=== PATIENT | male | born 1995 | race Two or more races ===

== ENCOUNTER 2018-11-20 23:06 | Emergency (ER) | payer MEDICAID ==
[~2018-11-20] VITALS: Ht 172.7 cm; Wt 72.6 kg
--- NOTE | 2018-11-20 23:30 | NUR ---
ED Nurse Note: RECIEVED PT FROM HOME ON [facility] AWAKE, ALERT AND ORIENTED X 4, PT HERE WITH C/O HAVING HERPES FLARE UP, TP STATES HE ALSO HAS DYSURIA AND PAIN ON HIS PENIS, SMALL HERPES LIKE LESION NOTED ON PENIS WITH REDNESS, PT STATES DYSURIA ALSO, PT DENEIS FEVERS, DIARRHEA, CP, SOB, OR ANY OTHER COMPLAINTS OR DISCOMFORTS. PT ASSISTED TO GOWNING AND URINE SAMPLE COLLECTED.
[2018-11-21] MEDS ORDERED: ACYCLOVIR800 MG ORAL (00:04)
[2018-11-21 00:20] VITALS: BP 129/77
--- NOTE | 2018-11-21 00:30 | NUR ---
ED Nurse Note: PT SEEN BY MD AND BEING D/C TO HOME, PT GIVEN F;U INFO, AFTER CARE INSTRUCTIONS AND RE-VERBALIZES PROPER MEDICATION ADMINISTRATION, PT WITH SPOUSE, PT DENEIS CP OR ANY OTHER DISCOMFORTS OR DISTRESS, PT ELAVING AMBULATORY WITH STEADY GAIT, ARMBAND REMOVED, NAD NOTED DURING D/C TO HOME.
[2018-11-21 00:37] VITALS: BP 129/77
--- NOTE | 2018-11-21 02:06 | Emergency Room Report ---
History of Present Illness General Chief Complaint: Male Urogenital Problems Source: Patient Present Illness Allergies: Coded Allergies: No Known Allergies (Unverified , 11/20/18) Patient History Reviewed Nursing Documentation: PMH: Agreed; PSxH: Agreed Nursing Documentation-PMH Past Medical History: No Stated History Physical Exam Vital Signs Date Time Temp Pulse Resp B/P (MAP) Pulse Ox O2 Delivery O2 Flow Rate FiO2 11/20/18 23:11 98.1 88 14 123/70 99 Room Air Medical Decision Making Diagnostic Impression: Primary Impression: Herpes Last Vital Signs Date Time Temp Pulse Resp B/P (MAP) Pulse Ox O2 Delivery O2 Flow Rate FiO2 11/21/18 00:37 98.8 84 16 129/77 100 Room Air Disposition: HOME, SELF-CARE Condition: Stable Scripts Acyclovir* (ZOVIRAX*) 800 Mg Tablet 800 MG ORAL FIVE TIMES A DAY, #35 TAB Prov: Iglesia Chun MD 11/21/18 Referrals: NOT CHOSEN IPA/,REFERRING (PCP) Patient Instructions: Genital Herpes Iglesia Chun MD Nov 21, 2018 02:06
== END 2018-11-21 00:30 | disposition home or self-care (01) ==
LOC: EMR 23:40
DX: B00.9 Herpesviral infection, unspecified (principal)
CPT/HCPCS: 99282